=== PATIENT | female | born 1935 | race American Indian/Alaskan Native ===

== ENCOUNTER 2021-05-21 11:44 | Outpatient (CLI) | payer OTHER | END 2021-05-21 11:54 | disposition home or self-care (01) | LOC: LAB 11:44 | DX: Z22.322 Carrier or suspected carrier of Methicillin resistant Staphylococcus aureus (principal) ==

== ENCOUNTER 2021-05-28 13:50 | Outpatient (CLI) | payer OTHER | END 2021-05-28 14:02 | disposition home or self-care (01) | LOC: RAD 13:50 | PROVIDERS: ATTEND Orthopaedic Surgery | DX: S82.62XA Displaced fracture of lateral malleolus of left fibula, initial encounter for closed fracture (principal); S90.32XA Contusion of left foot, initial encounter ==

== ENCOUNTER 2021-07-30 09:07 | Outpatient (CLI) | payer OTHER | END 2021-07-30 09:11 | disposition home or self-care (01) | LOC: RAD 09:07 | PROVIDERS: ATTEND Orthopaedic Surgery | DX: M25.572 Pain in left ankle and joints of left foot (principal) ==

== ENCOUNTER 2021-08-08 08:58 | Outpatient (CLI) | payer OTHER | END 2021-08-08 08:59 | disposition home or self-care (01) | LOC: LAB 08:58 | PROVIDERS: ATTEND Orthopaedic Surgery | DX: E55.9 Vitamin D deficiency, unspecified (principal); M85.9 Disorder of bone density and structure, unspecified; D56.1 Beta thalassemia; E21.3 Hyperparathyroidism, unspecified; E88.9 Metabolic disorder, unspecified; M81.8 Other osteoporosis without current pathological fracture ==

== ENCOUNTER 2021-09-03 08:33 | Outpatient (CLI) | payer OTHER | END 2021-09-03 08:42 | disposition home or self-care (01) | LOC: RAD 08:33 | PROVIDERS: ATTEND Orthopaedic Surgery | DX: M25.572 Pain in left ankle and joints of left foot (principal); M25.561 Pain in right knee; M17.11 Unilateral primary osteoarthritis, right knee ==

== ENCOUNTER → 2021-10-30 | Outpatient (CLI) | payer OTHER | END | disposition home or self-care (01) | LOC: RAD 08:52 | PROVIDERS: ATTEND Orthopaedic Surgery | DX: M25.572 Pain in left ankle and joints of left foot (principal) ==